=== PATIENT | male | born 1995 | race Caucasian/White ===

== ENCOUNTER 2016-06-21 16:00 | Emergency (ER) | payer BC ==
[~2016-06-21] VITALS: Ht 177.8 cm; Wt 61.3 kg
[2016-06-21 16:19] VITALS: BP 125/61; PULSE 63; TEMP 36.6; O2SAT 98; Ht 177.8 cm; Wt 61.3 kg
== END 2016-06-21 17:02 | disposition left against medical advice (07) ==
LOC: C.EDB 16:03 → C.EDC 17:02
DX: R33.9 Retention of urine, unspecified (principal)